=== PATIENT | female | born 1955 | race American Indian/Alaskan Native ===

== ENCOUNTER 2018-02-13 06:13 | Inpatient (IN) | payer OTHER ==
[2018-01-18 10:46] VITALS: BMI 33.6
--- NOTE | 2018-02-13 06:33 | HP ---
HISTORY OF PRESENT ILLNESS: This is a 62-year-old black female who originally had a lumbar fusion in 2013 as a result of an accident. She was doing well for many years and then developed severe pain radiating from her back around the right iliac crest into the right groin. Initially, it was intermittent and has become more constant in nature. It limits her ability to walk. The pain is more severe than it was in the past. She did have some mild neurologic deficits as a result of her previous injury and surgery. She had previously decreased sensation in right L5-S1, straight leg raising at 45 degrees. She now reports that she can hardly walk because of the pain. She was evaluated by Pain Management. She underwent an MRI of the lumbar spine which demonstrated spinal stenosis at L3-L4 which was the level above her fusion. Because of development of adjacent level disease and failing of conservative therapy for that, she is now being admitted for definitive surgery which would be an L3-L4 decompressive laminectomy. PAST MEDICAL HISTORY: Significant for cataract. MEDICATIONS: Currently, she takes Motrin as needed, tizanidine 2 mg three times a day, Lyrica 150 mg three times a day, nortriptyline 2 mg at bedtime, and Percocet as needed. ALLERGIES: SHE DENIES ALLERGIES. SOCIAL HISTORY: She denies smoking and drinking. She is , two children. FAMILY HISTORY: Noncontributory. REVIEW OF SYSTEMS: Completely unremarkable. PHYSICAL EXAMINATION: Her examination finds she has tenderness over the right side of her lower back, 45-degree straight leg raising, with severe response on the right. No motor deficit. She has sensory deficit S1 on the right. She uses cane to walk and she has an antalgic gait. At this point, she is being admitted for an L3-L4 laminectomy for severe stenosis due to adjacent level disease. I explained to her in detail the risks, benefits, and alternatives, her was reported to this conversation. She wishes to proceed with surgery. Wilmer Carrera MD
[2018-02-13] MEDS ORDERED: Lidocaine/Epinephrine 1% 1:100000 10 ML IJ ONE (07:18)
[2018-02-13] MEDS ORDERED: Bupivacaine HCl 0.5% PF (10 ml) Inj ONE (07:18)
[2018-02-13] MEDS ORDERED: Absorbable Gelatin Sponge Size 100 ONE (07:19)
[2018-02-13] MEDS ORDERED: ceFAZolin 1 gm FROZEN Premix 2 GM/100 ML ML IVPB ONE (07:21)
[2018-02-13] MEDS ORDERED: Remifentanil 1 mg/3 ml Vial IV ONE (07:36)
[2018-02-13] MEDS ORDERED: Propofol 10 mg/ml 1,000 MG/100 ML VIAL ONE (07:36)
[2018-02-13] MEDS ORDERED: Thrombin Topical 20,000 Intl Units Spray Kit TOP ONE ×2 (07:38→07:59)
[2018-02-13] MEDS ORDERED: Midazolam 2 MG/2 ML VIAL ONE (08:05)
[2018-02-13] MEDS ORDERED: Propofol 10 mg/ml Inj (20 ML) ONE (08:05)
[2018-02-13] MEDS ORDERED: Bacitracin 50,000 UNIT in Sodium Chloride 0.9% Irrig 1,000 ML IR SCH (08:30)
[2018-02-13] MEDS ORDERED: Bacitracin 500 Units/gm Oint Foilpak UD ONE (08:46)
[2018-02-13] MEDS ORDERED: Vancomycin 1 g Inj ONE (09:20)
[2018-02-13] MEDS ORDERED: Rocuronium 10 mg/ml (5 ml) ONE (09:23)
[2018-02-13] MEDS ORDERED: Neostigmine Methylsulfate 3mg/3ml Syringe IV ONE (09:48)
[2018-02-13] MEDS ORDERED: Dexamethasone 4 mg/1 ml IVP PRN (09:53)
[2018-02-13] MEDS: HYDROmorphone 0.5 mg/0.5 ml ISec IVP PRN ×4 (10:08→11:18)
--- NOTE | 2018-02-13 12:00 | RAD ---
Date of service: 02/13/2018 PROCEDURE: Intraoperative Fluoroscopy. HISTORY: DISC DISPLACEMENT L3-4 FINDINGS: Fluoroscopic assistance was provided. Fluoroscopy time = 4.4 sec. Radiation dose = 1.67 mGy. Please refer to the operative report from JERRICA Elliott.
[2018-02-13] MEDS: Potassium Ch 20mEq in D5-1/2NS 1,000 ML IV SCH (12:40)
[2018-02-14 01:16] VITALS: RESP 20
[2018-02-14] MEDS: Potassium Ch 20mEq in D5-1/2NS 1,000 ML IV SCH ×3 (03:07→12:54)
[2018-02-14] MEDS ORDERED: Oxycodone/Acetaminophen 5/325 mg Tab PO PRN (06:22)
--- NOTE | 2018-02-14 07:11 | OP ---
PROCEDURE DATE: 02/13/2018 SURGEON: Wilmer Carrera MD SOFTWARE PERFORMANCE ENGINEER: Antolin Fields MD PREOPERATIVE DIAGNOSIS: Lumbar spinal stenosis, L3-L4 adjacent level disease. POSTOPERATIVE DIAGNOSIS: Lumbar spinal stenosis, L3-L4 adjacent level disease. OPERATIVE PROCEDURE: Decompressive laminectomy with foraminotomies, L3-L4. DESCRIPTION OF PROCEDURE: The patient was brought to the operating room, intubated appropriately, and turned prone onto the Juma frame. Her back was prepped and draped in the usual manner. C-arm fluoroscopy, SSEP, and EMG potentials were monitored throughout the case. With regards to the neuromonitoring, closing the SSEP and EMGs were as at baseline. There were some episodes of EMG activity upon various points of decompression. After prepping and draping, we made a midline incision over the previous incision approximately 1 cm from the top of the old incision down approximately 1-1/2 inch to 2 inches in length, taken down through the subcuticular tissue. We carefully stripped the lumbodorsal muscle and fascia of the L3 spinous process and lamina. We ran as far as the lateral aspect of the pars, and we carefully exposed caudad, identified the previously placed crosslink and remnant of the L4 lamina. We verified our location on x-ray and then using a combination of high-speed drill, Leksell rongeur and Kerrison rongeur, we removed the L3 lamina as well as most of the remainder L4 lamina was easily accessible. There was some epidural fibrosis in that area, and there was also some epidural fibrosis in the area of the L3-L4 foramen on the left. Careful dissection allowed the ability to do foraminotomy bilaterally in L3-L4. We were able to decompress the existing nerve roots and thecal sac. We were able to identify that. Above the area of this laminectomy, there was no evidence of further neural compression. We obtained showing the extent of laminectomy that decompressed the area of interest. At this point, the wound was thoroughly irrigated. Hemostasis was meticulous. Gelfoam was placed over the exposed dura. The muscle and fascia were reapproximated in multiple layers 0 Vicryl, subcuticular with 2-0 Vicryl and then instead of using skin debbie, we ran a 3-0 Monocryl suture followed by Dermabond. The patient was then turned onto her bed, extubated and found to be moving both lower extremities with good strength, taken to the recovery room in stable condition. Blood loss approximately 300 mL, and 125 Cell Saver returned. All counts were correct. No specimen was sent. Wilmer Carrera MD
[2018-02-14] MEDS: oxyCODONE 20 mg ER Tab (oxyCONTIN) PO SCH ×2 (10:19→22:44)
[2018-02-14 11:16] LABS: BASO % 0.4 % (0.0-2.0); HEMOGLOBIN 13.9 g/dL (11.0-16.0); LYMPH # 1.1 K/uL (1.0-4.3); MEAN CELL VOLUME 83.9 fL (81.0-99.0); MEAN CORPUSCULAR HEMOGLOBIN 27.5 pg (27.0-31.0); MEAN CORPUSCULAR HGB CONC 32.7 g/dL (33.0-37.0); MEAN PLATELET VOLUME 9.7 fL (7.2-11.7); MONO # 0.5 K/uL (0.0-0.8); MONO % 4.9 % (0.0-10.0); NEUT # 7.6 K/uL (1.8-7.0); NEUT % 82.7 % (50.0-75.0); RBC 5.07 Mil/uL (3.80-5.20); RED CELL DISTRIBUTION WIDTH 14.3 % (11.5-14.5)
[2018-02-14 11:21] LABS: WHITE BLOOD COUNT 9.2 K/uL (4.8-10.8)
--- NOTE | 2018-02-14 11:40 | CP.PCM.PN ---
Subjective - Date & Time of Evaluation Date of Evaluation: 02/14/18 Time of Evaluation: 11:37 - Subjective Subjective: pod 1 pt has sever nausea since last night She cannot tolerate diet Given Zofran Changed from [employer]CHITECT to percocet/oxycontin no c/o leg pain/numbness no weeakness Cont obs for n/v cont zofran PRN PT and subacute when medically ready Objective - Vital Signs/Intake and Output Vital Signs (last 24 hours): Temp Pulse Resp BP Pulse Ox 98.4 F 87 20 159/93 H 98 02/14/18 07:10 02/14/18 07:10 02/14/18 07:10 02/14/18 07:10 02/14/18 07:10 Intake and Output: 02/14/18 02/14/18 06:59 18:59 Intake Total 240 Output Total 2500 Balance -2260 - Medications Medications: Current Medications Acetaminophen (Tylenol 325mg Tab) 650 mg PO Q6 PRN PRN Reason: Headache Potassium Chloride/Dextrose/Sod Cl (Potassium Chl 20 Meq In D5-1/2ns) 1,000 mls @ 60 mls/hr IV .[id number] [facility] Last Admin: 02/14/18 06:01 Dose: 60 mls/hr Ondansetron HCl (Zofran Inj) 4 mg IVP Q6 [facility] Oxycodone HCl (Oxycontin Extended Release Tab) 20 mg PO Q12 [facility] Last Admin: 02/14/18 10:19 Dose: 20 mg Oxycodone/Acetaminophen (Percocet 5/325 Mg Tab) 1 tab PO Q4H PRN PRN Reason: Pain, Mild (1-3) Stop: 02/17/18 06:23 - Labs Labs: 02/14/18 11:09
[2018-02-14 12:16] LABS: ALB/GLOB RATIO 1.5 (1.0-2.1); ALBUMIN 4.7 g/dL (3.5-5.0); ALT/SGPT 28 U/L (9-52); AST/SGOT 43 U/L (14-36); BLOOD UREA NITROGEN 7 mg/dL (7-17); CALCIUM 9.8 mg/dl (8.6-10.4); GFR NON-AFRICAN AMERICAN > 60
[2018-02-14 14:39] LABS: BLOOD UREA NITROGEN 8 mg/dL (7-17); CALCIUM 9.8 mg/dl (8.6-10.4); GFR NON-AFRICAN AMERICAN > 60
[2018-02-15] MEDS: Potassium Ch 20mEq in D5-1/2NS 1,000 ML IV SCH ×5 (08:45→23:18)
[2018-02-15] MEDS: oxyCODONE 20 mg ER Tab (oxyCONTIN) PO SCH ×2 (10:18→22:20)
--- NOTE | 2018-02-15 13:00 | CP.PCM.PN ---
Subjective - Date & Time of Evaluation Date of Evaluation: 02/15/18 Time of Evaluation: 12:56 - Subjective Subjective: SPINE - POD #2 Pt resting in bed. Able to move about and sit up on own. Still c/o nausea. "A little better than yesterday, but not much." Seen by PT today. Amb 20' w RW. Afeb. Moving all extremities actively. Neuro grossly intact. Incision clean and dry. Plan: PT rec TCU. Already authorized by Insurance Co. Objective - Vital Signs/Intake and Output Vital Signs (last 24 hours): Temp Pulse Resp BP Pulse Ox 98.5 F 89 20 157/90 H 97 02/15/18 07:00 02/15/18 07:00 02/15/18 07:00 02/15/18 07:00 02/15/18 07:00 Intake and Output: 02/15/18 02/15/18 06:59 18:59 Intake Total 800 Balance 800 - Medications Medications: Current Medications Acetaminophen (Tylenol 325mg Tab) 650 mg PO Q6 PRN PRN Reason: Headache Last Admin: 02/14/18 23:48 Dose: 650 mg Potassium Chloride/Dextrose/Sod Cl (Potassium Chl 20 Meq In D5-1/2ns) 1,000 mls @ 100 mls/hr IV .Q10H [facility] Last Admin: 02/15/18 11:01 Dose: 100 mls/hr Metoclopramide HCl (Reglan) 10 mg IVP Q6 PRN PRN Reason: Nausea/Vomiting Last Admin: 02/14/18 18:18 Dose: 10 mg Ondansetron HCl (Zofran Inj) 4 mg IVP Q6 PRN PRN Reason: Nausea/Vomiting Oxycodone HCl (Oxycontin Extended Release Tab) 20 mg PO Q12 [facility] Last Admin: 02/15/18 10:18 Dose: 20 mg Oxycodone/Acetaminophen (Percocet 5/325 Mg Tab) 1 tab PO Q4H PRN PRN Reason: Pain, Mild (1-3) Stop: 02/17/18 06:23 - Labs Labs: 02/14/18 11:09 02/14/18 14:10
[2018-02-16 00:37] VITALS: O2SAT 99
[2018-02-16 08:15] VITALS: BP 121/77; PULSE 75; TEMP 98.7
--- NOTE | 2018-02-16 08:54 | CP.PCM.PN ---
Subjective - Date & Time of Evaluation Date of Evaluation: 02/16/18 Time of Evaluation: 08:52 - Subjective Subjective: POD 3 doing well c/o some radicular pain l leg improved nausea amb to br with walker 5/5 throughout sens intact wound c and d P PT,inc ambulation rehab plan Objective - Vital Signs/Intake and Output Vital Signs (last 24 hours): Temp Pulse Resp BP Pulse Ox 98.7 F 75 20 121/77 99 02/16/18 07:13 02/16/18 07:13 02/16/18 07:13 02/16/18 07:13 02/16/18 07:13 Intake and Output: 02/16/18 02/16/18 06:59 18:59 Intake Total 1000 Balance 1000 - Medications Medications: Current Medications Acetaminophen (Tylenol 325mg Tab) 650 mg PO Q6 PRN PRN Reason: Headache Last Admin: 02/14/18 23:48 Dose: 650 mg Potassium Chloride/Dextrose/Sod Cl (Potassium Chl 20 Meq In D5-1/2ns) 1,000 mls @ 100 mls/hr IV .Q10H [facility] Last Admin: 02/15/18 23:18 Dose: 100 mls/hr Metoclopramide HCl (Reglan) 10 mg IVP Q6 PRN PRN Reason: Nausea/Vomiting Last Admin: 02/14/18 18:18 Dose: 10 mg Ondansetron HCl (Zofran Inj) 4 mg IVP Q6 PRN PRN Reason: Nausea/Vomiting Oxycodone HCl (Oxycontin Extended Release Tab) 20 mg PO Q12 [facility] Last Admin: 02/15/18 22:20 Dose: 20 mg Oxycodone/Acetaminophen (Percocet 5/325 Mg Tab) 1 tab PO Q4H PRN PRN Reason: Pain, Mild (1-3) Stop: 02/17/18 06:23 Last Admin: 02/16/18 08:28 Dose: 1 tab - Labs Labs: 02/14/18 11:09 02/14/18 14:10
[2018-02-16] MEDS: oxyCODONE 20 mg ER Tab (oxyCONTIN) PO SCH (10:09)
[2018-02-16] MEDS ORDERED: DiphenhydrAMINE 50 mg/ml Inj IVP STA (14:04)
--- NOTE | 2018-02-16 16:30 | CP.PCM.PN ---
Subjective - Date & Time of Evaluation Date of Evaluation: 02/16/18 Time of Evaluation: 13:00 - Subjective Subjective: [employer] patient seen today, states feels much better today, denies any N/V/D, headache vss- stable s/p decompressive laminectomy POD # 3 patient accepted at [facility] for rehab D/w Dr. Carrera , cleared for discharge to rehab today and f/u with his office after d/c from rehab Discharge plan discussed with patient , who understands and agrees with plan Objective - Vital Signs/Intake and Output Vital Signs (last 24 hours): Temp Pulse Resp BP Pulse Ox 98.7 F 75 20 121/77 99 02/16/18 07:13 02/16/18 07:13 02/16/18 07:13 02/16/18 07:13 02/16/18 07:13 Intake and Output: 02/16/18 02/16/18 06:59 18:59 Intake Total 1000 Balance 1000 - Medications Medications: Current Medications Acetaminophen (Tylenol 325mg Tab) 650 mg PO Q6 PRN PRN Reason: Headache Last Admin: 02/14/18 23:48 Dose: 650 mg Potassium Chloride/Dextrose/Sod Cl (Potassium Chl 20 Meq In D5-1/2ns) 1,000 mls @ 100 mls/hr IV .Q10H [facility] Last Admin: 02/15/18 23:18 Dose: 100 mls/hr Metoclopramide HCl (Reglan) 10 mg IVP Q6 PRN PRN Reason: Nausea/Vomiting Last Admin: 02/14/18 18:18 Dose: 10 mg Ondansetron HCl (Zofran Inj) 4 mg IVP Q6 PRN PRN Reason: Nausea/Vomiting Oxycodone HCl (Oxycontin Extended Release Tab) 20 mg PO Q12 [facility] Last Admin: 02/16/18 10:09 Dose: 20 mg Oxycodone/Acetaminophen (Percocet 5/325 Mg Tab) 1 tab PO Q4H PRN PRN Reason: Pain, Mild (1-3) Stop: 02/17/18 06:23 Last Admin: 02/16/18 08:28 Dose: 1 tab - Labs Labs: 02/14/18 11:09 02/14/18 14:10
== END 2018-02-16 16:37 | DRG 517 ==
LOC: C.9S 06:13 → C.6T 18:43
PROVIDERS: ADMIT Neurological Surgery; ATTEND Neurological Surgery
PROC: 01NB0ZZ Release Lumbar Nerve, Open Approach (ICD-10-PCS; principal; 2018-02-13 07:30)
DX: M51.26 Other intervertebral disc displacement, lumbar region (principal); M51.16 Intervertebral disc disorders with radiculopathy, lumbar region; M48.061 Spinal stenosis, lumbar region without neurogenic claudication; M79.605 Pain in left leg; X58.XXXS Exposure to other specified factors, sequela; Z98.1 Arthrodesis status